=== PATIENT | female | born 1960 | race Caucasian/White ===

== ENCOUNTER 2022-08-12 07:50 | Outpatient (REF) | payer OTHER, MEDICARE, SELFPAY ==
--- NOTE | ~2022-08-12 | XR_ITS ---
EXAMINATION: XR FOOT, RIGHT CLINICAL INFORMATION: Right foot pain. COMPARISON: None TECHNIQUE: AP, lateral, and oblique views of the right foot. FINDINGS: There is an acute, oblique spiral type fracture of the first metatarsal diaphysis. The remainder of the digits appear intact. The tarsal bones are normally aligned. There is mild soft tissue swelling. Distal fibular hardware appears intact. XR/XR foot RT min 3V IMPRESSION: Acute, nondisplaced fracture of the first metatarsal as detailed above.
== END 2022-08-12 07:51 | disposition home or self-care (01) ==
LOC: HO.HOSX 07:50
PROVIDERS: Visit Provider Physician Assistant
DX: S92.311A Displaced fracture of first metatarsal bone, right foot, initial encounter for closed fracture (principal); S97.81XA Crushing injury of right foot, initial encounter
CPT/HCPCS: 73630; 99202

== ENCOUNTER 2022-09-09 | Outpatient (REF) | payer OTHER, MEDICARE, MEDICAID, SELFPAY ==
--- NOTE | ~2022-09-09 | XR_ITS ---
EXAMINATION: XR FOOT, RIGHT CLINICAL INFORMATION: Right foot pain. COMPARISON: 08/12/2022 TECHNIQUE: AP, lateral, and oblique views of the right foot. FINDINGS: Fracture of the mid right first metatarsal is noted to have some periosteal new bone formation present. No change in alignment of the nondisplaced fracture is identified. No dislocation of the foot is identified. No significant degenerative joint disease is appreciated. Patient is status post previous plate and side screw fixation of distal fibular fracture with hardware appearing intact. Plantar calcaneal spur is seen. XR/XR foot RT min 3V IMPRESSION: Healing nondisplaced fracture of the right first metatarsal.
== END 2022-09-09 00:01 | disposition home or self-care (01) ==
LOC: HO.HOSX
PROVIDERS: Visit Provider Physician Assistant
DX: S92.311A Displaced fracture of first metatarsal bone, right foot, initial encounter for closed fracture (principal); S97.81XA Crushing injury of right foot, initial encounter
CPT/HCPCS: 73630; 99212

== ENCOUNTER 2022-09-28 11:48 | Outpatient (REF) | payer OTHER, MEDICARE, MEDICAID, SELFPAY ==
--- NOTE | ~2022-09-28 | XR_ITS ---
EXAMINATION: XR HIP, LEFT CLINICAL INFORMATION: Left hip pain COMPARISON: None TECHNIQUE: Two views of the left hip. FINDINGS: Bones and soft tissues are normal. No fracture. Alignment is anatomic. Hip joint space is maintained. Possible narrowing of the left sacroiliac joint. XR/XR hip LT w PEL1V IMPRESSION: Normal left hip. Possible narrowing of the left sacroiliac joint.
== END 2022-09-28 11:49 | disposition home or self-care (01) ==
LOC: HO.HOSX 11:48
PROVIDERS: Visit Provider Physician Assistant
DX: S70.02XA Contusion of left hip, initial encounter (principal); M25.552 Pain in left hip; V09.20XA Pedestrian injured in traffic accident involving unspecified motor vehicles, initial encounter; Y93.9 Activity, unspecified; Y92.9 Unspecified place or not applicable; Y99.9 Unspecified external cause status
CPT/HCPCS: 73502; 99212

== ENCOUNTER → 2022-10-21 12:18 | Outpatient (BNVA) | payer OTHER, MEDICARE, SELFPAY | PROVIDERS: PCP Nurse Practitioner Primary Care; Visit Provider Physician Assistant | DX: S70.02XA Contusion of left hip, initial encounter (principal); S92.311A Displaced fracture of first metatarsal bone, right foot, initial encounter for closed fracture; S97.81XA Crushing injury of right foot, initial encounter | CPT/HCPCS: 99212 ==

== ENCOUNTER 2022-12-07 08:46 | Outpatient (REF) | payer OTHER, MEDICARE, SELFPAY ==
[2022-12-07 11:45] LABS: MANUAL DIFF FLAG NO
[2022-12-07 11:57] LABS: Basophils Absolute Auto 0.1 X10*3/uL (0.0-0.2); Basophils Percent Auto 0.9 % (0-2); Eosinophils Absolute Auto 0.1 X10*3/uL (0.0-0.4); Eosinophils Percent Auto 2.6 % (0-4); Hematocrit 43.3 % (37.0-47.0); Hemoglobin 14.1 g/dl (12.0-16.0); Imm Gran Abs Auto 0.02 X10*3/uL (0.00-0.03); Imm Gran Pct Auto 0.4 % (0.0-0.4); Lymphocytes Absolute Auto 1.9 X10*3/uL (1.2-4.9); Lymphocytes Percent Auto 34.9 % (20-40); Mean Corpuscular HGB Conc 32.6 g/dl (31.0-35.0); Mean Corpuscular Hemoglobin 30.7 pg (27.0-33.0); Mean Corpuscular Volume 94.1 fL (80.0-98.0); Mean Platelet Volume 11.8 fL (9.4-12.3); Monocytes Absolute Auto 0.6 X10*3/uL (0.1-1.2); Monocytes Percent Auto 11.2 % (2-11); Neutrophils Absolute Auto 2.7 x10*3/uL (2.0-8.3); Platelet Count 240 X10*3/uL (160-400); Red Cell Distribution Width 12.7 % (11.0-16.0); White Blood Count 5.4 X10*3/uL (4.8-10.8)
[2022-12-07 12:36] LABS: Alanine Aminotransferase 18 U/L (0-31); Albumin Level 4.1 g/dL (3.5-5.0); Alkaline Phosphatase 100 U/L (39-117); Anion Gap 10 (12-20); Aspartate Amino Transferase 20 U/L (5-31); Bilirubin Total 0.8 mg/dL (0.0-1.0); Blood Urea Nitrogen 19 mg/dL (9-16); Calcium 9.6 mg/dL (8.4-10.2); Carbon Dioxide 28 mmol/L (22-29); Chloride 107 mmol/L (96-108); Cholesterol 258 mg/dL; Estimated Glomerular Filt Rate > 60; Glucose Random 97 mg/dL (60-115); HDL Cholesterol 50 mg/dL; LDL Cholesterol Calculated 162 mg/dl; Potassium 4.4 mmol/L (3.3-5.1); Sodium 141 mmol/L (135-145); Total Protein 6.7 g/dL (6.5-8.0); Triglycerides 232 mg/dL
[2022-12-07 12:55] LABS: TSH reflex Free T4 1.18 uIU/mL (0.32-4.0)
[2022-12-08 05:14] LABS: HIV AB/AG Nonreactive (Nonreactive); HIV Num 1 0.05 S/CO (0.00-0.99); ~HepC Num1 0.09 S/CO (0.00-0.79); ~Hepatitis C Antibody Nonreactive (Nonreactive)
== END 2022-12-07 08:47 | disposition home or self-care (01) ==
LOC: HO.WFDLDS 08:46
PROVIDERS: Visit Provider Nurse Practitioner Primary Care
DX: Z13.220 Encounter for screening for lipoid disorders (principal); Z11.4 Encounter for screening for human immunodeficiency virus [HIV]; Z11.59 Encounter for screening for other viral diseases; R63.5 Abnormal weight gain; I10 Essential (primary) hypertension; D50.0 Iron deficiency anemia secondary to blood loss (chronic)
CPT/HCPCS: 36415; 80053; 80061; 84443; 85025; 86803; 87389

== ENCOUNTER 2023-01-20 11:00 | Outpatient (RCR) | payer OTHER, MEDICARE, MEDICAID, SELFPAY ==
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
== END 2023-12-15 08:39 | disposition home or self-care (01) ==
LOC: HO.PTWFD 11:00
PROVIDERS: Visit Provider Physician Assistant
DX: S70.02XD Contusion of left hip, subsequent encounter (principal)
CPT/HCPCS: 97110; 97161

== ENCOUNTER 2024-09-18 09:45 | Outpatient (REF) | payer MEDICARE, SELFPAY ==
[2024-09-18 11:51] LABS: Alanine Aminotransferase 23 U/L (0-31); Albumin Level 4.2 g/dL (3.5-5.0); Alkaline Phosphatase 105 U/L (39-117); Anion Gap 13 (12-20); Aspartate Amino Transferase 34 U/L (5-31); Bilirubin Total 0.5 mg/dL (0.0-1.0); Blood Urea Nitrogen 19 mg/dL (9-16); Calcium 9.3 mg/dL (8.4-10.2); Carbon Dioxide 25 mmol/L (22-29); Chloride 109 mmol/L (96-108); Cholesterol 244 mg/dL (<200); Estimated Glomerular Filt Rate > 60; Glucose Random 91 mg/dL (60-115); HDL Cholesterol 63 mg/dL (>40); LDL Cholesterol Calculated 148 mg/dL (<100); Potassium 4.5 mmol/L (3.3-5.1); Sodium 142 mmol/L (135-145); Triglycerides 168 mg/dL (<150)
== END 2024-09-18 09:46 | disposition home or self-care (01) ==
LOC: HO.LAB 09:45
PROVIDERS: PCP Nurse Practitioner Primary Care; Visit Provider Nurse Practitioner Primary Care
DX: I10 Essential (primary) hypertension (principal); E78.00 Pure hypercholesterolemia, unspecified
CPT/HCPCS: 36415; 80053; 80061

== ENCOUNTER 2025-05-11 09:50 | Emergency (ER) | payer MEDICARE, SELFPAY ==
[2025-05-11 09:53] VITALS: BP 174/107; PULSE 90; RESP 16; TEMP 36.4; O2SAT 95; BMI 27.9
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
[2025-05-11] MEDS: dexAMETHasone 2 MG TABLET 10 MG PO (10:26)
[2025-05-11] MEDS: diphenhydrAMINE HCL 25 MG CAPSULE PO (10:26)
[2025-05-11] MEDS: cephALEXin 500 MG CAPSULE PO (10:26)
[2025-05-11 10:32] VITALS: BP 184/105; PULSE 84; RESP 16; O2SAT 97
[2025-05-11 11:04] VITALS: BP 184/105; PULSE 84; RESP 16; TEMP 36.3; O2SAT 97
== END 2025-05-11 11:06 | disposition home or self-care (01) ==
PROVIDERS: Emergency Provider Emergency Medicine; PCP Nurse Practitioner Primary Care
DX: L03.114 Cellulitis of left upper limb (principal); M79.89 Other specified soft tissue disorders; M79.642 Pain in left hand
CPT/HCPCS: 99283; J8540